=== PATIENT | male | born 1975 | race Caucasian/White ===

== ENCOUNTER 2022-01-13 06:12 | Outpatient (CLI) | payer OTHER ==
[~2022-01-13] VITALS: Ht 193 cm; Wt 143.0 kg
[2022-01-13] MEDS ORDERED: AMLO-251 PO (13:16)
[2022-01-13] MEDS ORDERED: LISI40TA9 PO (13:16)
[2022-01-13] MEDS ORDERED: CETI10CA PO (13:16)
[2022-01-13] MEDS ORDERED: OMG1KC PO (13:16)
[2022-01-13] MEDS ORDERED: CALC-472 PO (13:16)
[2022-01-13] MEDS ORDERED: OMEP20CA18 PO (13:16)
[2022-01-13] MEDS ORDERED: METF-397 PO (13:16)
[2022-01-13] MEDS ORDERED: CALC625T14 PO (13:16)
== END 2022-01-13 13:31 | disposition home or self-care (01) ==
LOC: PREOP 06:12
PROVIDERS: ATTEND Surgery
DX: Z01.818 Encounter for other preprocedural examination (principal)

== ENCOUNTER 2022-01-24 07:46 | Day surgery (SDC) | payer OTHER ==
[~2022-01-24] VITALS: Ht 193 cm; Wt 143.0 kg
[~2022-01-24 07:46] MED LIST: AMLO-251 PO; CALC-472 PO; CALC625T14 PO; CETI10CA PO; LISI40TA9 PO; METF-397 PO; OMEP20CA18 PO; OMG1KC PO
[2022-01-24] MEDS ORDERED: LACTATED RINGERS 1,000 ML IV ONE (07:52)
[2022-01-24] MEDS ORDERED: LACTATED RINGERS 1,000 ML IV STA (07:54)
[2022-01-24] MEDS ORDERED: HURRICAINE EXT TUBE (BENZOCAINE) XX PRN (08:00)
[2022-01-24 08:06] VITALS: BP 158/99
--- NOTE | 2022-01-24 08:17 | Progress Note-Pre Operative ---
Pre-Operative Progress Note H&P Reviewed The H&P was reviewed, patient examined and no changes noted. Time Seen by Provider: 08:14 Date H&P Reviewed: January 24, 2022 Time H&P Reviewed: 08:14 Pre-Operative Diagnosis: GERD, Hx of Polyps MIRACLE HANKS DO January 24, 2022 08:17
[2022-01-24] MEDS ORDERED: PROPOFOL INJECTION 50 ML IV ONE ×2 (08:32→08:47)
[2022-01-24] MEDS ORDERED: proPOfol 200 MG/20 ML (DIPRIVAN) VIAL IV ONE (09:07)
[2022-01-24 09:16] VITALS: BP 130/62
[2022-01-24 09:20] VITALS: BP 142/97
--- NOTE | 2022-01-24 09:20 | Progress Note-Post Operative ---
Post-Operative Progess Note Surgeon (s)/Wool Batting Worker (s) Surgeon MIRACLE HANKS DO Wool Batting Worker: none Pre-Operative Diagnosis GERD, Hx of Polyps Post-Operative Diagnosis Gastritis Hiatal hernia Polyps Diverticula int hemorrhoids Procedure & Operative Findings Date of Procedure 01/24/22 Procedure Performed/Findings EGD with bx Colonoscopy with snare polypectomy PROCEDURE NOTE: After informed consent was obtained, the patient was brought to the endoscopy suite, placed in bed in left lateral decubitus position. He was administered IV sedation by the TUBE FORMER OPERATOR who then monitored vitals the entire time, heart rate, blood pressure and pulse ox and the scope was inserted down the mouth through the esophagus into the stomach. Pushed into the stomach, pushed past the antrum into the duodenum. Duodenum looked good. Pulled back and did a biopsy of antrum, then retroflexed the scope, saw a small hiatal hernia, took a picture of this and then pulled the scope into the GE junction and then did a biopsy of the GE junction. Pushed the scope back into the stomach, suctioned all the air out of the stomach. At this point pulled the scope up the esophagus and out the mouth. Switched camera, switched gloves, went down below andstarted the colonoscopy. Pushed all the way into about 140 cm to get all the way to cecum, took a picture of the appendiceal orifice and noted the ileocecal valve. Slowly withdrew the scope, insufflating to look circumferentially at the cosby starting in the cecum and up the ascending colon. Found two polyps here and elected to remove them with the snare. Continued up to the hepatic flexure, then down the transverse colon, where I found another polyp. I took a picture and then removed it with the snare. Went around the splenic flexure, into the descending colon, took a picture of a large diverticula. Then down into the sigmoid and finally into the rectum, retroflexed in the rectal vault, saw some minimal internal hemorrhoids and took a picture of this. The patient tolerated the procedure and he recovered in the endoscopy suite. Anesthesia Type IV sedation by TUBE FORMER OPERATOR Estimated Blood Loss Estimated blood loss (mL): scant Specimens/Packing Specimens Removed antral bx body of stomach GE jxn bx asc colon polyps transverse colon polyp MIRACLE HANKS DO January 24, 2022 09:20
--- NOTE | 2022-01-24 09:22 | Endoscopy Discharge Instruct ---
Endo Procedure/Findings Findings 1.: Gastritis 2.: Hiatal Hernia 3.: Polyp 4.: Diverticulosis, Internal Hemorrhoids Discharge Instructions - Activity: You might feel a little sleepy until tomorrow. This is due to the medicine you received to relax you. Until tomorrow, you should: NOT drive a car, operate machinery or power tools. NOT drink any alcoholic beverages. NOT make any important decisions or sign importortant papers. Do not return to work until tomorrow, unless otherwise instructed. Resume previous activities tomorrow. Diet: Start by taking liquids. If you tolerate liquids, advance to solid food. 1.: EGD in 3 years 2.: Colonscopy in 5 years Notify Physician - If you experience excessive bleeding, unusual abdominal pain, fever, or chest pain, contact your doctor immediately. MIRACLE HANKS DO January 24, 2022 09:22
[2022-01-24 09:55] VITALS: BP 168/100
--- NOTE | 2022-01-24 12:59 | Anesthesia-General Post-Op ---
MAC Patient Condition Mental Status/LOC: Same as Preop Cardiovascular: Satisfactory Nausea/Vomiting: Absent Respiratory: Satisfactory Pain: Controlled Complications: Absent Post Op Complications Complications None Follow Up Care/Instructions Patient Instructions None needed. Anesthesiology Discharge Order Discharge Order Patient is doing well, no complaints, stable vital signs, no apparent adverse anesthesia problems. No complications reported per nursing. LUISITO CA CRNA January 24, 2022 12:59
== END 2022-01-24 10:04 | disposition home or self-care (01) ==
LOC: ENDO 07:46
PROVIDERS: ATTEND Surgery
DX: K21.00 Gastro-esophageal reflux disease with esophagitis, without bleeding (principal); K29.50 Unspecified chronic gastritis without bleeding; D12.3 Benign neoplasm of transverse colon; K63.5 Polyp of colon; K44.9 Diaphragmatic hernia without obstruction or gangrene; K57.30 Diverticulosis of large intestine without perforation or abscess without bleeding; K64.8 Other hemorrhoids; I10 Essential (primary) hypertension; E11.9 Type 2 diabetes mellitus without complications; E66.01 Morbid (severe) obesity due to excess calories; G47.33 Obstructive sleep apnea (adult) (pediatric); F17.210 Nicotine dependence, cigarettes, uncomplicated; Z68.38 Body mass index [BMI] 38.0-38.9, adult; Z99.89 Dependence on other enabling machines and devices; Z79.899 Other long term (current) drug therapy
CPT/HCPCS: 88305